=== PATIENT | female | born 1960 | race Caucasian/White ===

== ENCOUNTER 2024-06-28 09:49 | Outpatient (CLI) | payer BC | END 2024-06-28 09:50 | disposition home or self-care (01) | LOC: CSHMAMMO 09:49 | PROVIDERS: ATTEND Internal Medicine | DX: Z12.31 Encounter for screening mammogram for malignant neoplasm of breast (principal); M85.89 Other specified disorders of bone density and structure, multiple sites; Z80.3 Family history of malignant neoplasm of breast | CPT/HCPCS: 77063; 77067; 77080 ==